=== PATIENT | female | born 1970 | race Caucasian/White ===

== ENCOUNTER 2019-06-03 07:46 | Day surgery (SDC) | payer OTHER | END 2019-06-03 23:05 | disposition home or self-care (01) | LOC: RAD 07:46 | DX: S63.501A Unspecified sprain of right wrist, initial encounter (principal); M24.131 Other articular cartilage disorders, right wrist; X58.XXXA Exposure to other specified factors, initial encounter | CPT/HCPCS: 20605; 25246; 73115; 73222; 77002; A9577; Q9967 ==